=== PATIENT | male | born 1970 | race Hispanic/Latino ===

== ENCOUNTER 2024-01-08 10:07 | Emergency (ER) | payer BC ==
[2024-01-08 10:20] VITALS: TEMP 98.4
[2024-01-08 11:21] LABS: BASOPHILS % 0.3 % (0.0-1.0); EOSINOPHILS # (AUTO) 0.1 (0.0-0.4); EOSINOPHILS % 1.3 % (0.0-6.0); HEMATOCRIT 48.6 % (38.2-49.6); HEMOGLOBIN 15.4 g/dL (14.0-18.0); LYMPHOCYTES # (AUTO) 2.6 (1.0-3.2); LYMPHOCYTES % 27.4 % (18.0-39.1); MEAN CORPUSCULAR HEMOGLOBIN 27.7 pg (28-32); MEAN CORPUSCULAR HGB CONC 31.7 g/dL (31-35); MEAN CORPUSCULAR VOLUME 87.6 fL (81-99); MONOCYTES # (AUTO) 0.5 (0.2-0.8); MONOCYTES % 5.6 % (4.4-11.3); NEUTROPHILS # (AUTO) 6.2 (2.1-6.9); NEUTROPHILS % 65.2 % (38.7-80.0); PLATELET COUNT 215 x10e3/uL (140-360); RED BLOOD COUNT 5.55 x10e6/uL (4.3-5.7); RED CELL DISTRIBUTION WIDTH 12.4 % (11.7-14.4); WHITE BLOOD COUNT 9.54 x10e3/uL (4.8-10.8)
[2024-01-08 11:29] LABS: INR 0.97; PROTHROMBIN TIME 13.4 seconds (11.9-14.5)
[2024-01-08 11:30] LABS: PARTIAL THROMBOPLASTIN TIME 28.1 seconds (23.8-35.5)
[2024-01-08 11:36] LABS: ALANINE AMINOTRANSFERASE 22 IU/L (0-55); ALBUMIN/GLOBULIN RATIO 1.1 (0.8-2.0); ALKALINE PHOSPHATASE 51 IU/L (40-150); ANION GAP 14.1 mmol/L (8-16); BILIRUBIN,TOTAL 0.6 mg/dL (0.2-1.2); BLOOD UREA NITROGEN 12 mg/dL (7-26); BUN/CREATININE RATIO 11 (6-25); CALCIUM 9.5 mg/dL (8.4-10.2); CARBON DIOXIDE 24 mmol/L (22-29); CHLORIDE 106 mmol/L (98-107); CREATININE, SERUM 1.08 mg/dL (0.72-1.25); EST GLOMERULAR FILTRATION RATE 83 ML/MIN (>=60); GLUCOSE 153 mg/dL (74-118); POTASSIUM 4.1 mmol/L (3.5-5.1); SODIUM 140 mmol/L (136-145); TOTAL PROTEIN 7.5 g/dL (6.5-8.1)
[2024-01-08 11:54] LABS: TROPONIN I < 0.001 ng/mL (0-0.300)
[2024-01-08 12:15] VITALS: PULSE 59; RESP 15
[2024-01-08] MEDS: ONDANSETRON HCL INJ 2MG/ML 2ML 2 MG/ML VIAL IV STA (12:22)
[2024-01-08] MEDS: SODIUM CHLORIDE 0.9% 1000ML 1,000 ML IV STA (12:26)
[2024-01-08] MEDS: MECLIZINE HCL 12.5 MG TAB PO ONE (12:26)
[2024-01-08] MEDS ORDERED: MECLIZINE HCL12.5 MG PO (12:43)
[2024-01-08 13:09] VITALS: BP 137/92; PULSE 58; RESP 15; O2SAT 97
== END 2024-01-08 13:02 | disposition home or self-care (01) ==
LOC: ER 10:19
DX: H81.399 Other peripheral vertigo, unspecified ear (principal); E11.65 Type 2 diabetes mellitus with hyperglycemia; I10 Essential (primary) hypertension; E78.5 Hyperlipidemia, unspecified; Z11.52 Encounter for screening for COVID-19
CPT/HCPCS: 0223U; 36415; 70450; 71045; 80053; 82553; 83735; 84484; 85025; 85610; 85730; 93005; 99284; J2405; J7030; J8597

== ENCOUNTER 2024-10-28 08:08 | Emergency (ER) | payer BC ==
[~2024-10-28] VITALS: Ht 170.2 cm; Wt 93.0 kg
[~2024-10-28 08:08] MED LIST: MECLIZINE HCL12.5 MG PO
[2024-10-28 10:28] LABS: CORONAVIRUS COVID-19 AG NEGATIVE (NEGATIVE)
[2024-10-28 10:35] LABS: STREPTOCOCCUS GRP A ANTIGEN POSITIVE (NEGATIVE)
[2024-10-28] MEDS ORDERED: AMOX TR-K CLV1 EAC2 PO (10:53)
[2024-10-28] MEDS ORDERED: PREDNISONE20 MG PO (10:53)
[2024-10-28 11:38] VITALS: PULSE 60; RESP 18; TEMP 98.2; O2SAT 99
== END 2024-10-28 11:40 | disposition home or self-care (01) ==
LOC: ER 08:14
DX: J02.0 Streptococcal pharyngitis (principal); I10 Essential (primary) hypertension; E11.9 Type 2 diabetes mellitus without complications; E78.5 Hyperlipidemia, unspecified; R06.02 Shortness of breath; Z11.52 Encounter for screening for COVID-19
CPT/HCPCS: 83518; 99283

== ENCOUNTER 2024-10-30 09:03 | Emergency (ER) | payer BC ==
[~2024-10-30] VITALS: Ht 170.2 cm; Wt 93.0 kg
[~2024-10-30 09:03] MED LIST changes: +AMOX TR-K CLV1 EAC2 PO; +PREDNISONE20 MG PO
[2024-10-30 09:33] LABS: BASOPHILS % 0.2 % (0.0-1.0); EOSINOPHILS % 0.2 % (0.0-6.0); LYMPHOCYTES % 13.1 % (18.0-39.1); MONOCYTES % 7.9 % (4.4-11.3); NEUTROPHILS % 78.2 % (38.7-80.0); RED CELL DISTRIBUTION WIDTH 14.2 % (11.7-14.4)
[2024-10-30] MEDS: Morphine 2mg Syringe 2 MG/ML SYR IV ONE (09:35)
[2024-10-30] MEDS: SODIUM CHLORIDE 0.9% 1000ML 1,000 ML IV ONE (09:35)
[2024-10-30] MEDS: ONDANSETRON HCL INJ 2MG/ML 2ML 2 MG/ML VIAL IV STA (09:35)
[2024-10-30 09:59] LABS: EST GLOMERULAR FILTRATION RATE 102.0 ML/MIN (>=60)
[2024-10-30] MEDS ORDERED: IOPAMIDOL 370 MG/ML 100 ML INFUS..BTL INJ ONE (10:31)
[2024-10-30 17:01] VITALS: PULSE 87; RESP 20; TEMP 98.2; O2SAT 93
== END 2024-10-30 17:15 | disposition short-term general hospital (02) ==
LOC: ER 09:09
DX: J38.6 Stenosis of larynx (principal); J36 Peritonsillar abscess; I10 Essential (primary) hypertension; E11.9 Type 2 diabetes mellitus without complications; E78.5 Hyperlipidemia, unspecified
CPT/HCPCS: 36415; 70491; 80053; 85025; 99284; J0295; J2270; J2405; J7030; J7050; Q9967